=== PATIENT | female | born 2000 | race Caucasian/White ===

== ENCOUNTER 2024-02-10 14:20 | Emergency (ER) | payer OTHER, SELFPAY ==
[2024-02-10 14:25] VITALS: BP 123/89
--- NOTE | 2024-02-10 14:39 | ED.GENMED ---
History of Present Illness
General
Chief Complaint: Change Level of Consciousness
Source: patient
Exam Limitations: none
Time Seen by Provider: 02/10/24 14:37
Nursing documentation reviewed up to this point in time: agreed with
Travel History
Have you had any contact with someone who has COVID-19?: Unable to Answer
Do you have any symptoms of coronavirus? Fever > 100 degrees, chills, cough, shortness of breath, sore throat, loss of taste or smell, muscle aches, or headache?: Unable to Answer
History of Present Illness
History of Present Illness:
Patient received fentanyl and Versed for outpatient wisdom tooth extraction, presents to ED from oral surgeons office, secondary to prolonged sedated state despite receiving reversal medications, including Narcan and Romazicon. Upon arrival,
patient is awake but sleepy, and is complaining of headache only. Patient was able to complete the procedure. Of note, secondary to ongoing Ramadan, patient has not had any meals for the past 5 days. Denies chest pain. Denies shortness of
breath. Denies abdominal pain. Denies nausea sensation. Denies sore throat. Denies blurred vision. Denies dizziness.
Review of Systems
Review of Systems
Allergies reviewed?: Yes
All Other Systems: ROS reviewed and negative except as documented in HPI and ROS
Constitutional: Reports no symptoms
EENT: Reports no symptoms
Respiratory: Reports no symptoms
Cardiac: Reports no symptoms
ABD/GI: Reports no symptoms
Musculoskeletal: Reports no symptoms
Skin: Reports no symptoms
Neurological: Reports headache; Denies no symptoms or weakness
Phy Exam
Physical Exam
Physical Exam:
Physical Exam
General: mild distress, not acutely ill. afebrile
Head: nc/at. eomi
Neck: supple. no meningeal signs. normal posterior pharynx
Heart: s1/s2 regular rate and rhythm, no murmur. equal radial pulses.
Lungs: no acute respiratory distress. clear bilaterally
Abdomen: normal bowel sounds. not tender.
Neuro: alert and oriented. no focal neurological deficits
Skin: no rash
Psychiatric: well kept. interactive and cooperative
Extremities: no edema. no calf tenderness.
Course
Orders/Labs/Results
Orders:
Orders
02/10/24
Electrocardiogram (*1) Stat
Reason for Study: Chest Pain
Comment: already done
02/10/24 14:37
0.9% Sodium Chloride 500 ml [Nss] 500 ml IV BOLUS
02/10/24 14:38
Acetaminophen 1000MG/100Ml [Ofirmev] 1,000 mg in 100 ml IV ONCE
Acetaminophen IV Indication:: ED Narcotic Naive Pt-ONCE
Vital Signs
Initial and Last Documented VS:
Initial Vital Signs
Pulse Resp BP Pulse Ox
110 16 123/89 100
02/10/24 14:25 02/10/24 14:25 02/10/24 14:25 02/10/24 14:25
Last Documented Vital Signs
Pulse Resp BP Pulse Ox
87 20 110/69 98
02/10/24 16:37 02/10/24 16:37 02/10/24 16:38 02/10/24 16:37
MDM/Problems Addressed
MDM/Problems Addressed:
Patient's mental status rapidly improved during observation ED. Patient remains hemodynamically stable without any neurological deficit. Patient's family at bedside confirmed that patient is currently at her baseline mental status. As such,
patient will be discharged home in stable condition, with recommendation to follow-up with PCP/oral surgeon for reevaluation as an outpatient.
*EKG
Interpreted by ED Provider?: Yes
EKG Intrepretation Date: 02/10/24
Heart Rate: 100
Rate: normal
Rhythm: sinus
[place]: normal axis
Interval: normal interval
*Critical Care Note
Total Time (30-74mins, 75-104mins- exclusive of procedures): Not Applicable
ED Attending Note
-
Portions of this chart may have been created with voice recognition software.� Occasional wrong word or��sound alike� substitutions may have occurred due to the inherent limitations of voice recognition software.
Discharge Plan
Departure
Patient Disposition: Home (Routine Discharge)
Date of Disposition: 02/10/24
Time of Disposition: 16:28
Patient with high blood pressure during this ER visit?: Yes
Condition: Good
Discharge Problem:
Altered mental status
Instructions: Altered Mental Status (DC)
Referrals:
David Mcdaniel MD [Family Provider] -
Ray Riddle DMD [Active] -
Activity Restrictions/Additional Instructions:
As discussed, please follow-up with your primary care physician and/or oral surgeon for further evaluation and treatment. Please stay hydrated at home along with normal meals, unless told otherwise by oral surgeon..
Interventions
Interventions:
*Risk Screen - Suicide Last Done: 02/10/24 15:30
*General Assessment Last Done: 02/10/24 15:30
*Neglect/Abuse Screening Last Done: 02/10/24 15:30
ED- Fall Risk Assessment Last Done: 02/10/24 14:47
*ED COVID-19 Vaccine History Last Done: 02/10/24 15:30
*Nursing Disposition Last Done: 02/10/24 16:44
ED- Cardiac Assessment Last Done: 02/10/24 14:47
ED- Neurological Assessment Last Done: 02/10/24 15:20
ED-Psychological Assessment Last Done: 02/10/24 15:20
ED- Pulmonary Assessment Last Done: 02/10/24 14:47
Discharge Date and Time
Discharge Date/Time: 02/10/24 16:45
[2024-02-10] MEDS: NSS 500 IV (14:46)
[2024-02-10] MEDS: OFIRMEV 100 IV (14:53)
[2024-02-10 15:00] VITALS: BP 111/70
[2024-02-10 16:38] VITALS: BP 110/69
== END 2024-02-10 16:45 | disposition home or self-care (01) ==
LOC: EMR 14:20
PROVIDERS: EMERGENCY PHYSICIAN Emergency Medicine; FAMILY PHYSICIAN Internal Medicine
DX: R41.82 Altered mental status, unspecified (principal); R03.0 Elevated blood-pressure reading, without diagnosis of hypertension
CPT/HCPCS: 99284; 96374; 96361; 93005